=== PATIENT | female | born 1955 | race Caucasian/White ===

== ENCOUNTER 2016-09-11 17:56 | Inpatient (IN) | payer MEDICARE ==
[~2016-09-11] VITALS: Ht 165.1 cm; Wt 76.2 kg
[~2016-09-11 17:56] MED LIST: ASPI81TA2 PO; DIAZ10TA PO; DIME240C2 PO; DIPH25CA83 PO; LEVO500T15 PO; [UNRECOGNIZED DRUG - CODE] PO
[2016-09-11] MEDS ORDERED: IV NS 0.9% 1,000 ML BAG IV ONE ×2 (19:00→21:30)
[2016-09-11] MEDS ORDERED: IV SET PRIMARY 1 EA INFUS.SET MC ONE ×2 (19:15→21:28)
[2016-09-11] MEDS ORDERED: IV NS 0.9% 1,000 ML ONE ×2 (19:15→21:28)
[2016-09-11 19:21] LABS: BASOPHILS # (AUTO) 0.2 /CMM (0.0-0.2); BASOPHILS % (AUTO) 1.4 % (0.0-2.0); DIFF TOTAL % 100 %; HEMATOCRIT 37 % (33-45); HEMOGLOBIN 12.1 g/dL (11.5-14.8); LYMPHOCYTES % (AUTO) 7.1 % (20.0-44.0); MEAN CORPUSCULAR HEMOGLOBIN 30 PG (26.0-33.0); MEAN CORPUSCULAR HGB CONC 33 g/dl (31.0-36.0); MEAN CORPUSCULAR VOLUME 90 fL (82-100); MONOCYTES # (AUTO) 0.4 /CMM (0.1-1.30); NEUTROPHILS # (AUTO) 12.1 /CMM (1.8-8.9); NEUTROPHILS % (AUTO) 88.5 % (43.0-81.0); PLATELET COUNT (AUTO) 431 /CMM (150-450); RED BLOOD CELL COUNT(AUTO) 4.07 MIL/uL (4.0-5.2); WHITE BLOOD COUNT (AUTO) 13.7 K/uL (4.3-11.0)
[2016-09-11 19:31] LABS: ANION GAP 17 (5-14); CALCIUM, SERUM 9.6 mg/dL (8.5-10.1); CARBON DIOXIDE 26 mmol/L (21-32); CHLORIDE 98 mmol/L (98-107); CREATININE 2.2 mg/dL (0.6-1.3); GFR 23 mL/min (>60); GLUCOSE 154 mg/dL (74-106); POTASSIUM 3.9 mmol/L (3.5-5.1); SODIUM SERUM 137 mmol/L (136-145); UREA NITROGEN, BLOOD 32 mg/dL (7-18)
[2016-09-11 19:35] LABS: INR 1.06 (0.87-1.13); PROTHROMBIN TIME 11.1 SECS (9.5-12.7)
[2016-09-11 19:37] LABS: ALANINE AMINOTRANSFERASE 58 U/L (12-78); ALBUMIN 3.1 g/dL (3.4-5.0); ASPARTATE AMINOTRANSFERASE 55 U/L (15-37); BILIRUBIN,DIRECT 0.1 mg/dL (0.0-0.2); BILIRUBIN,TOTAL 0.4 mg/dL (0.2-1.0); INDIRECT BILIRUBIN 0.3 mg/dL (0.0-1.1); TOTAL PROTEIN, SERUM 8.7 g/dL (6.4-8.2)
[2016-09-11 19:39] LABS: TROPONIN I < 0.017 ng/mL (0.00-0.056)
[2016-09-11 19:50] LABS: KETONES,URINE Negative (NEGATIVE); LEUKOCYTE ESTERASE ,URINE Moderate (NEGATIVE)
[2016-09-11 19:54] LABS: ADD UA MICROSCOPIC YES; PH,URINE >9.0 (5.0-8.0)
[2016-09-11 20:19] LABS: LACTIC ACID 2.5 mmol/L (0.4-2.0)
[2016-09-11 20:20] LABS: *LACTIC ACID REFLEX FLAG YES
[2016-09-11 20:24] LABS: ADD URINE CULTURE YES
[2016-09-11 20:28] LABS: CANNABINOID, URINE NEGATIVE (NEGATIVE); PHENCYCLIDINE SCREEN,URINE NEGATIVE (NEGATIVE)
[2016-09-11] MEDS ORDERED: LEVOFLOXACIN 750 MG /D5W 150ML 150 ML IV ONE ×2 (20:55→21:00)
[2016-09-11] MEDS ORDERED: IV SET PRIMARY PUMP SET 1 EA INFUS.SET MC ONE (20:55)
[2016-09-11] MEDS ORDERED: SECONDARY IV SET 1 EA INFUS.SET MC ONE (21:28)
[2016-09-11] MEDS ORDERED: IV NS 0.9% 250 ML IV ONE (21:28)
[2016-09-11] MEDS ORDERED: ONDANSETRON HCL/PF 4 MG/2 ML VIAL ONE (21:41)
[2016-09-11] MEDS ORDERED: ONDANSETRON HCL/PF - ER 4 MG/2 ML VIAL IV ONE (22:00)
[2016-09-12] VITALS (28 sets, daily range): BP systolic 101–165; BP diastolic 45–95
[2016-09-12] MEDS ORDERED: IV NS 0.9% 1,000 ML IV PRN (01:19)
[2016-09-12] MEDS ORDERED: HYDROCODONE/APAP 5/325MG 1 EACH TABLET PO PRN (01:30)
[2016-09-12] MEDS ORDERED: MAG HYDROX/AL HYDROX/SIMETH 30 ML UDC PO PRN (01:30)
[2016-09-12] MEDS ORDERED: ZOLPIDEM TARTRATE 5 MG TABLET PO PRN (01:30)
[2016-09-12] MEDS ORDERED: ACETAMINOPHEN 325 MG TABLET PO PRN (01:30)
[2016-09-12] MEDS ORDERED: LORAZEPAM INJ 2 MG/ML VIAL IV PRN ×2 (01:30→07:30)
[2016-09-12] MEDS ORDERED: LEVOFLOXACIN 500 MG /D5W 100ML 500 MG in PREMIX 1 EA IV SCH (01:30)
[2016-09-12] MEDS ORDERED: ONDANSETRON HCL/PF 4 MG/2 ML VIAL IVP PRN (01:30)
[2016-09-12] MEDS ORDERED: Z GUARD REMEDY 2 OZ OINT TP PRN (01:30)
[2016-09-12] MEDS ORDERED: ENOXAPARIN SODIUM 40 MG/0.4 ML DISP.SYRIN SQ SCH (01:30)
[2016-09-12] MEDS ORDERED: MAGNESIUM HYDROXIDE 30 ML UDC PO PRN (01:30)
[2016-09-12] MEDS ORDERED: IV SET PRIMARY PUMP SET 1 EA INFUS.SET MC ONE ×5 (01:32→21:46)
[2016-09-12] MEDS ORDERED: SECONDARY IV SET 1 EA INFUS.SET MC ONE (01:32)
[2016-09-12] MEDS ORDERED: IV NS 0.9% 1,000 ML ONE (01:32)
[2016-09-12] MEDS ORDERED: MORPHINE SULFATE INJ 2 MG/ML DISP.SYRIN ONE (01:48)
[2016-09-12] MEDS: MORPHINE SULFATE INJ 2 MG/ML DISP.SYRIN IV PRN ×2 (01:52→17:43)
[2016-09-12] MEDS ORDERED: LEVOFLOXACIN 500 MG /D5W 100ML 100 ML IV ONE (02:20)
[2016-09-12] MEDS ORDERED: ONDANSETRON HCL/PF 4 MG/2 ML VIAL ONE (03:53)
[2016-09-12 05:22] LABS: ABG BASE EXCESS 0.5 mmol/L; ABG HCO3 24.9 mmol/L; ABG PCO2 39.6 mmHg (35.0-45.0); ABG PH 7.417 (7.350-7.450); ABG PO2 59.8 mmHg (75.0-100.0); ABG TOTAL HEMOGLOBIN 12.1 G/dL (12.0-16.0); ALLEN TEST Pass; O2Hb 88.5 % (94.0-97.0)
[2016-09-12] MEDS ORDERED: NITROGLYCERIN 0.4 MG/TAB BOTTLE ONE (05:44)
[2016-09-12] MEDS ORDERED: FUROSEMIDE 40 MG/4 ML VIAL ONE (05:48)
[2016-09-12] MEDS: NITROGLYCERIN 4.9 GM SPRAY SL PRN ×3 (05:52→06:00)
[2016-09-12] MEDS ORDERED: FUROSEMIDE 40 MG/4 ML VIAL IV ONE (06:00)
[2016-09-12 06:25] LABS: BASOPHILS % (AUTO) 0.1 % (0.0-2.0); DIFF TOTAL % 100 %; HEMATOCRIT 36 % (33-45); HEMOGLOBIN 12.1 g/dL (11.5-14.8); LYMPHOCYTES # (AUTO) 0.6 /CMM (0.8-4.8); MEAN CORPUSCULAR HEMOGLOBIN 30 PG (26.0-33.0); MEAN CORPUSCULAR HGB CONC 33 g/dl (31.0-36.0); MEAN CORPUSCULAR VOLUME 90 fL (82-100); MONOCYTES # (AUTO) 0.1 /CMM (0.1-1.30); MONOCYTES % (AUTO) 1.2 % (2.0-12.0); NEUTROPHILS # (AUTO) 9.2 /CMM (1.8-8.9); NEUTROPHILS % (AUTO) 92.7 % (43.0-81.0); PLATELET COUNT (AUTO) 401 /CMM (150-450); RED BLOOD CELL COUNT(AUTO) 4.07 MIL/uL (4.0-5.2); WHITE BLOOD COUNT (AUTO) 9.9 K/uL (4.3-11.0)
[2016-09-12 06:30] LABS: ANION GAP 20 (5-14); CALCIUM, SERUM 9.1 mg/dL (8.5-10.1); CARBON DIOXIDE 25 mmol/L (21-32); CHLORIDE 103 mmol/L (98-107); CREATININE 2.1 mg/dL (0.6-1.3); GFR 24 mL/min (>60); GLUCOSE 189 mg/dL (74-106); POTASSIUM 3.6 mmol/L (3.5-5.1); SODIUM SERUM 144 mmol/L (136-145); UREA NITROGEN, BLOOD 33 mg/dL (7-18)
[2016-09-12 06:38] LABS: TROPONIN I < 0.017 ng/mL (0.00-0.056)
[2016-09-12 07:00] LABS: ABG BASE EXCESS -0.6 mmol/L; ABG HCO3 21.7 mmol/L; ABG PCO2 28.6 mmHg (35.0-45.0); ABG PH 7.497 (7.350-7.450); ABG PO2 111.3 mmHg (75.0-100.0); ABG TOTAL HEMOGLOBIN 12.3 G/dL (12.0-16.0); ALLEN TEST Pass; O2Hb 96.5 % (94.0-97.0)
[2016-09-12] MEDS ORDERED: MIDAZOLAM HCL 100 MG in IV NS 0.9% 80 ML IV PRN (07:30)
[2016-09-12] MEDS ORDERED: PANTOPRAZOLE 40 MG TABLET.DR PO SCH (07:30)
[2016-09-12] MEDS ORDERED: FENTANYL CITRATE IV 1,250 MCG in IV NS 0.9% 225 ML IV PRN (07:30)
[2016-09-12] MEDS ORDERED: PROPOFOL 100 ML IV PRN (08:00)
[2016-09-12] MEDS ORDERED: SUCCINYLCHOLINE CHLORIDE 20 MG/ML VIAL IV ONE (08:00)
[2016-09-12] MEDS ORDERED: ETOMIDATE 2 MG/ML VIAL IV ONE (08:00)
[2016-09-12] MEDS ORDERED: NITROGLYCERIN 4.9 GM SPRAY SL PRN (08:11)
[2016-09-12 08:37] LABS: ABG BASE EXCESS 0.1 mmol/L; ABG HCO3 23.3 mmol/L; ABG PCO2 33.1 mmHg (35.0-45.0); ABG PH 7.465 (7.350-7.450); ABG PO2 476.3 mmHg (75.0-100.0); ABG TOTAL HEMOGLOBIN 11.7 G/dL (12.0-16.0); ALLEN TEST Pass; AaDO2 203.6 mmHg
[2016-09-12] MEDS ORDERED: DIAZEPAM 10 MG TABLET PO SCH (09:00)
[2016-09-12] MEDS ORDERED: diphenhydrAMINE HCL 25 MG CAPSULE PO PRN (09:00)
[2016-09-12] MEDS ORDERED: ASPIRIN 81 MG TAB.CHEW PO SCH (09:00)
[2016-09-12] MEDS ORDERED: oxyCODONE/APAP (5/325 MG) 1 UDTAB TABLET PO PRN ×2 (09:00)
[2016-09-12] MEDS ORDERED: SET PCA INFUSE SET 1 EA INFUS.SET MC ONE (09:02)
[2016-09-12] MEDS ORDERED: GABA-534 PO ×2 (09:06)
[2016-09-12] MEDS ORDERED: NORT25CA PO (09:06)
[2016-09-12] MEDS ORDERED: MORP30TA PO (09:06)
[2016-09-12] MEDS ORDERED: GLAT40SY SQ (09:06)
[2016-09-12] MEDS ORDERED: IPRA3AMP IH ×2 (09:06)
[2016-09-12] MEDS ORDERED: LEVO125T8 PO (09:06)
[2016-09-12] MEDS ORDERED: VITA80008 PO (09:06)
[2016-09-12] MEDS ORDERED: CHOL100044 PO (09:06)
[2016-09-12] MEDS: IV NS 0.9% 1,000 ML IV PRN ×2 (10:26→19:18)
[2016-09-12] MEDS: PANTOPRAZOLE 80 MG in IV NS 0.9% 500 ML IV PRN ×2 (10:30→18:30)
[2016-09-12] MEDS: OCTREOTIDE 1,250 MCG in IV NS 0.9% 247.5 ML IV PRN (10:31)
[2016-09-12] MEDS: LORAZEPAM INJ 2 MG/ML VIAL IV PRN ×4 (12:41→22:35)
[2016-09-12 13:08] LABS: AMYLASE 84 U/L (25-115)
[2016-09-12] MEDS ORDERED: ACETAMINOPHEN 650 MG/SUPP.RECT RC PRN (18:00)
[2016-09-12] MEDS ORDERED: OCTREOTIDE 500 MCG/ML VIAL ONE (21:12)
[2016-09-12] MEDS ORDERED: IV NS 0.9% 100 ML IV ONE ×2 (21:26→21:34)
[2016-09-12] MEDS ORDERED: IV NS 0.9% 250 ML IV ONE (21:46)
[2016-09-12] MEDS: MIDAZOLAM HCL 100 MG in IV NS 0.9% 80 ML IV PRN (22:37)
[2016-09-13] VITALS (39 sets, daily range): BP systolic 120–179; BP diastolic 45–88
[2016-09-13] MEDS: MORPHINE SULFATE INJ 2 MG/ML DISP.SYRIN IV PRN ×3 (00:43→15:10)
[2016-09-13] MEDS: LORAZEPAM INJ 2 MG/ML VIAL IV PRN ×9 (00:58→22:14)
[2016-09-13] MEDS ORDERED: hydrALAZINE HCL IV 20 MG VIAL ONE (02:31)
[2016-09-13] MEDS ORDERED: hydrALAZINE HCL IV 20 MG VIAL IV ONE (02:36)
[2016-09-13] MEDS ORDERED: hydrALAZINE HCL IV 20 MG VIAL IV PRN (02:36)
[2016-09-13] MEDS: PANTOPRAZOLE 80 MG in IV NS 0.9% 500 ML IV PRN ×3 (03:45→23:16)
[2016-09-13] MEDS: IV NS 0.9% 1,000 ML IV PRN ×3 (03:45→22:49)
[2016-09-13] MEDS: OCTREOTIDE 1,250 MCG in IV NS 0.9% 247.5 ML IV PRN ×2 (03:47→13:21)
[2016-09-13 05:11] LABS: BASOPHILS % (AUTO) 0.1 % (0.0-2.0); DIFF TOTAL % 100 %; EOSINOPHILS # (AUTO) 0.2 /CMM (0.0-0.7); EOSINOPHILS % (AUTO) 2.2 % (0.0-6.0); HEMATOCRIT 28 % (33-45); HEMOGLOBIN 9.2 g/dL (11.5-14.8); LYMPHOCYTES # (AUTO) 1.5 /CMM (0.8-4.8); LYMPHOCYTES % (AUTO) 20.3 % (20.0-44.0); MEAN CORPUSCULAR HEMOGLOBIN 30 PG (26.0-33.0); MEAN CORPUSCULAR HGB CONC 34 g/dl (31.0-36.0); MEAN CORPUSCULAR VOLUME 90 fL (82-100); MONOCYTES # (AUTO) 0.4 /CMM (0.1-1.30); NEUTROPHILS # (AUTO) 5.2 /CMM (1.8-8.9); NEUTROPHILS % (AUTO) 71.4 % (43.0-81.0); PLATELET COUNT (AUTO) 275 /CMM (150-450); RED BLOOD CELL COUNT(AUTO) 3.06 MIL/uL (4.0-5.2); WHITE BLOOD COUNT (AUTO) 7.3 K/uL (4.3-11.0)
[2016-09-13 05:21] LABS: CALCIUM, SERUM 7.9 mg/dL (8.5-10.1); CREATININE 2.3 mg/dL (0.6-1.3); POTASSIUM 3.5 mmol/L (3.5-5.1)
[2016-09-13] MEDS ORDERED: LABETALOL HCL IV 100MG VIAL ONE (05:42)
[2016-09-13] MEDS ORDERED: LABETALOL 20 MG/4 ML VIAL IV ONE (06:00)
[2016-09-13] MEDS: MIDAZOLAM HCL 100 MG in IV NS 0.9% 80 ML IV PRN ×2 (07:19→16:59)
[2016-09-13] MEDS: LEVOTHYROXINE SODIUM 125 MCG TABLET PO SCH (09:30)
[2016-09-13 09:42] LABS: ABG BASE EXCESS -4.2 mmol/L; ABG HCO3 19.6 mmol/L; ABG PCO2 30.7 mmHg (35.0-45.0); ABG PH 7.422 (7.350-7.450); ABG PO2 113.3 mmHg (75.0-100.0); ABG TOTAL HEMOGLOBIN 8.9 G/dL (12.0-16.0); ALLEN TEST Pass; AaDO2 100.6 mmHg; O2Hb 96.3 % (94.0-97.0)
[2016-09-13] MEDS: HYDROCODONE/APAP 5/325MG 1 EACH TABLET PO PRN ×2 (10:22→18:13)
[2016-09-13] MEDS ORDERED: Magnesium 1GM/D5W 100ML PREMIX 200 ML IV ONE (10:35)
[2016-09-13] MEDS ORDERED: SECONDARY IV SET 1 EA INFUS.SET MC ONE (10:36)
[2016-09-13] MEDS ORDERED: IV NS 0.9% 250 ML IV ONE (10:36)
[2016-09-13] MEDS ORDERED: IV SET PRIMARY PUMP SET 1 EA INFUS.SET MC ONE (10:36)
[2016-09-13] MEDS: Magnesium 1GM/D5W 100ML PREMIX 100 ML IV SCH ×2 (11:10→12:26)
[2016-09-13] MEDS: LEVOFLOXACIN 250 MG /D5W 50 ML 250 MG in PREMIX 1 EA IV SCH (15:07)
[2016-09-13] MEDS: hydrALAZINE HCL IV 20 MG VIAL IV PRN ×2 (15:10→22:15)
[2016-09-13] MEDS: GABAPENTIN 300 MG CAPSULE PO SCH (17:01)
[2016-09-13] MEDS ORDERED: METOPROLOL TARTRATE INJ 5 MG/5 ML AMPUL IVP ONE (19:30)
[2016-09-13] MEDS: MUPIROCIN OINT 2% 22 GM TUBE SCH (22:13)
[2016-09-13] MEDS: PIPERACILLIN /TAZOBACTAM 2.25 G in IV D5W 50 ML IV SCH (22:13)
[2016-09-13] MEDS: NORTRIPTYLINE HCL 25 MG CAPSULE PO SCH (22:14)
[2016-09-14] VITALS (35 sets, daily range): BP systolic 125–178; BP diastolic 49–103
[2016-09-14] MEDS: MORPHINE SULFATE INJ 2 MG/ML DISP.SYRIN IV PRN ×3 (02:23→19:55)
[2016-09-14] MEDS ORDERED: METOPROLOL TARTRATE INJ 5 MG/5 ML AMPUL ONE (02:25)
[2016-09-14 05:16] LABS: BASOPHILS % (AUTO) 0.4 % (0.0-2.0); DIFF TOTAL % 100 %; EOSINOPHILS # (AUTO) 0.2 /CMM (0.0-0.7); EOSINOPHILS % (AUTO) 1.7 % (0.0-6.0); HEMATOCRIT 25 % (33-45); HEMOGLOBIN 8.3 g/dL (11.5-14.8); LYMPHOCYTES # (AUTO) 1.2 /CMM (0.8-4.8); LYMPHOCYTES % (AUTO) 11.7 % (20.0-44.0); MEAN CORPUSCULAR HEMOGLOBIN 30 PG (26.0-33.0); MEAN CORPUSCULAR HGB CONC 33 g/dl (31.0-36.0); MEAN CORPUSCULAR VOLUME 89 fL (82-100); MONOCYTES # (AUTO) 0.6 /CMM (0.1-1.30); MONOCYTES % (AUTO) 6.4 % (2.0-12.0); NEUTROPHILS # (AUTO) 7.9 /CMM (1.8-8.9); NEUTROPHILS % (AUTO) 79.8 % (43.0-81.0); PLATELET COUNT (AUTO) 284 /CMM (150-450); RED BLOOD CELL COUNT(AUTO) 2.77 MIL/uL (4.0-5.2); WHITE BLOOD COUNT (AUTO) 9.9 K/uL (4.3-11.0)
[2016-09-14] MEDS: PIPERACILLIN /TAZOBACTAM 2.25 G in IV D5W 50 ML IV SCH (05:26)
[2016-09-14 05:36] LABS: ALBUMIN 2.2 g/dL (3.4-5.0); BILIRUBIN,DIRECT 0.1 mg/dL (0.0-0.2); BILIRUBIN,TOTAL 0.3 mg/dL (0.2-1.0); CALCIUM, SERUM 8.1 mg/dL (8.5-10.1); CREATININE 1.6 mg/dL (0.6-1.3); INDIRECT BILIRUBIN 0.2 mg/dL (0.0-1.1); PHOSPHORUS 2.5 mg/dL (2.5-4.9); POTASSIUM 3.1 mmol/L (3.5-5.1)
[2016-09-14] MEDS: MIDAZOLAM HCL 100 MG in IV NS 0.9% 80 ML IV PRN (08:18)
[2016-09-14] MEDS: IV NS 0.9% 1,000 ML IV PRN (08:20)
[2016-09-14] MEDS: hydrALAZINE HCL IV 20 MG VIAL IV PRN (08:20)
[2016-09-14] MEDS: LEVOTHYROXINE SODIUM 125 MCG TABLET PO SCH (08:20)
[2016-09-14] MEDS: MUPIROCIN OINT 2% 22 GM TUBE SCH ×2 (08:20→20:22)
[2016-09-14] MEDS: CHOLECALCIFEROL 1,000 UNIT TABLET (VIT D3) PO SCH (08:21)
[2016-09-14] MEDS: GABAPENTIN 300 MG CAPSULE PO SCH ×2 (08:21→17:14)
[2016-09-14] MEDS ORDERED: Potassium Chloride 40 MEQ in IV NS 0.9% 1,000 ML IV PRN (09:19)
[2016-09-14] MEDS: PANTOPRAZOLE 80 MG in IV NS 0.9% 500 ML IV PRN (09:36)
[2016-09-14] MEDS ORDERED: IV SET PRIMARY PUMP SET 1 EA INFUS.SET MC ONE (10:55)
[2016-09-14 11:23] LABS: ABG BASE EXCESS -3.4 mmol/L; ABG HCO3 20.1 mmol/L; ABG PH 7.443 (7.350-7.450); ABG PO2 96.4 mmHg (75.0-100.0); ABG TOTAL HEMOGLOBIN 8.7 G/dL (12.0-16.0); ALLEN TEST Pass; AaDO2 82.3 mmHg; O2Hb 94.9 % (94.0-97.0)
[2016-09-14] MEDS ORDERED: PIPERACILLIN /TAZOBACTAM 2.25 G in IV D5W 50 ML IV SCH (12:00)
[2016-09-14 13:44] LABS: THYROID STIMULATING HORMONE 0.013 uIU/mL (0.358-3.74)
[2016-09-14] MEDS: PIPERACILLIN /TAZOBACTAM 3.375 G in IV D5W 50 ML IV SCH ×3 (13:55→23:54)
[2016-09-14] MEDS ORDERED: SECONDARY IV SET 1 EA INFUS.SET MC ONE (15:04)
[2016-09-14] MEDS: POTASSIUM CL. PREMIX PERIPHER. 50 ML IV SCH ×4 (15:09→18:35)
[2016-09-14] MEDS: LEVOFLOXACIN 250 MG /D5W 50 ML 250 MG in PREMIX 1 EA IV SCH (15:12)
[2016-09-14] MEDS ORDERED: BISACODYL SUPP (10 MG) 10 MG/SUPP.RECT SUPP.RECT RC PRN (15:30)
[2016-09-14] MEDS: PANTOPRAZOLE 40 MG VIAL IV SCH (20:21)
[2016-09-14] MEDS: NORTRIPTYLINE HCL 25 MG CAPSULE PO SCH (21:15)
[2016-09-15] VITALS (39 sets, daily range): BP systolic 113–164; BP diastolic 47–93
[2016-09-15] MEDS: PIPERACILLIN /TAZOBACTAM 3.375 G in IV D5W 50 ML IV SCH ×5 (00:08→23:07)
[2016-09-15] MEDS ORDERED: IV NS 0.9% 250 ML IV ONE (03:03)
[2016-09-15] MEDS: LORAZEPAM INJ 2 MG/ML VIAL IV PRN ×4 (03:51→23:04)
[2016-09-15 04:57] LABS: BASOPHILS % (AUTO) 0.4 % (0.0-2.0); DIFF TOTAL % 100 %; EOSINOPHILS # (AUTO) 0.2 /CMM (0.0-0.7); EOSINOPHILS % (AUTO) 1.5 % (0.0-6.0); HEMATOCRIT 24 % (33-45); HEMOGLOBIN 8.3 g/dL (11.5-14.8); LYMPHOCYTES # (AUTO) 1.8 /CMM (0.8-4.8); LYMPHOCYTES % (AUTO) 14.7 % (20.0-44.0); MEAN CORPUSCULAR HEMOGLOBIN 30 PG (26.0-33.0); MEAN CORPUSCULAR HGB CONC 34 g/dl (31.0-36.0); MEAN CORPUSCULAR VOLUME 90 fL (82-100); MONOCYTES # (AUTO) 0.6 /CMM (0.1-1.30); MONOCYTES % (AUTO) 5.3 % (2.0-12.0); NEUTROPHILS # (AUTO) 9.6 /CMM (1.8-8.9); NEUTROPHILS % (AUTO) 78.1 % (43.0-81.0); PLATELET COUNT (AUTO) 302 /CMM (150-450); RED BLOOD CELL COUNT(AUTO) 2.72 MIL/uL (4.0-5.2); WHITE BLOOD COUNT (AUTO) 12.3 K/uL (4.3-11.0)
[2016-09-15 05:13] LABS: CALCIUM, SERUM 8.6 mg/dL (8.5-10.1); CREATININE 1.7 mg/dL (0.6-1.3); PHOSPHORUS 2.8 mg/dL (2.5-4.9); POTASSIUM 3.4 mmol/L (3.5-5.1)
[2016-09-15 07:38] LABS: ABG BASE EXCESS -5.6 mmol/L; ABG HCO3 17.9 mmol/L; ABG PCO2 27.7 mmHg (35.0-45.0); ABG PH 7.429 (7.350-7.450); ABG PO2 104.7 mmHg (75.0-100.0); ABG TOTAL HEMOGLOBIN 8.2 G/dL (12.0-16.0); ALLEN TEST Pass; AaDO2 76.7 mmHg; O2Hb 95.3 % (94.0-97.0)
[2016-09-15] MEDS: POTASSIUM CL. PREMIX PERIPHER. 50 ML IV SCH ×4 (08:19→11:23)
[2016-09-15] MEDS: LEVOTHYROXINE SODIUM 125 MCG TABLET PO SCH (08:20)
[2016-09-15] MEDS: GABAPENTIN 300 MG CAPSULE PO SCH ×2 (08:20→17:05)
[2016-09-15] MEDS: CHOLECALCIFEROL 1,000 UNIT TABLET (VIT D3) PO SCH (08:20)
[2016-09-15] MEDS: PANTOPRAZOLE 40 MG VIAL IV SCH ×2 (08:20→21:18)
[2016-09-15] MEDS: hydrALAZINE HCL IV 20 MG VIAL IV PRN (08:20)
[2016-09-15] MEDS: MUPIROCIN OINT 2% 22 GM TUBE SCH ×2 (08:29→21:18)
[2016-09-15] MEDS ORDERED: SECONDARY IV SET 1 EA INFUS.SET MC ONE (14:14)
[2016-09-15] MEDS: LEVOFLOXACIN 250 MG /D5W 50 ML 250 MG in PREMIX 1 EA IV SCH (14:17)
[2016-09-15] MEDS: MORPHINE SULFATE INJ 2 MG/ML DISP.SYRIN IV PRN (17:05)
[2016-09-15] MEDS: NORTRIPTYLINE HCL 25 MG CAPSULE PO SCH (21:18)
[2016-09-16] VITALS (39 sets, daily range): BP systolic 143–181; BP diastolic 45–93
[2016-09-16] MEDS: MORPHINE SULFATE INJ 2 MG/ML DISP.SYRIN IV PRN ×3 (01:28→22:00)
[2016-09-16] MEDS: LORAZEPAM INJ 2 MG/ML VIAL IV PRN (03:08)
[2016-09-16 04:49] LABS: BASOPHILS % (AUTO) 0.2 % (0.0-2.0); DIFF TOTAL % 100 %; EOSINOPHILS # (AUTO) 0.1 /CMM (0.0-0.7); EOSINOPHILS % (AUTO) 0.8 % (0.0-6.0); HEMATOCRIT 24 % (33-45); HEMOGLOBIN 8.2 g/dL (11.5-14.8); LYMPHOCYTES % (AUTO) 15.6 % (20.0-44.0); MEAN CORPUSCULAR HEMOGLOBIN 30 PG (26.0-33.0); MEAN CORPUSCULAR HGB CONC 34 g/dl (31.0-36.0); MEAN CORPUSCULAR VOLUME 88 fL (82-100); MONOCYTES # (AUTO) 0.8 /CMM (0.1-1.30); MONOCYTES % (AUTO) 6.6 % (2.0-12.0); NEUTROPHILS # (AUTO) 9.8 /CMM (1.8-8.9); NEUTROPHILS % (AUTO) 76.8 % (43.0-81.0); PLATELET COUNT (AUTO) 322 /CMM (150-450); RED BLOOD CELL COUNT(AUTO) 2.75 MIL/uL (4.0-5.2); WHITE BLOOD COUNT (AUTO) 12.8 K/uL (4.3-11.0)
[2016-09-16] MEDS: PIPERACILLIN /TAZOBACTAM 3.375 G in IV D5W 50 ML IV SCH ×3 (05:09→17:01)
[2016-09-16 05:22] LABS: ALBUMIN 2.4 g/dL (3.4-5.0); BILIRUBIN,TOTAL 0.5 mg/dL (0.2-1.0); CALCIUM, SERUM 8.6 mg/dL (8.5-10.1); PHOSPHORUS 2.4 mg/dL (2.5-4.9); POTASSIUM 3.5 mmol/L (3.5-5.1); TOTAL PROTEIN, SERUM 7.5 g/dL (6.4-8.2)
[2016-09-16] MEDS: LEVOTHYROXINE SODIUM 125 MCG TABLET PO SCH (08:09)
[2016-09-16] MEDS: PANTOPRAZOLE 40 MG VIAL IV SCH ×2 (08:09→21:31)
[2016-09-16] MEDS: CHOLECALCIFEROL 1,000 UNIT TABLET (VIT D3) PO SCH (08:09)
[2016-09-16] MEDS: GABAPENTIN 300 MG CAPSULE PO SCH ×2 (08:09→17:01)
[2016-09-16] MEDS: MUPIROCIN OINT 2% 22 GM TUBE SCH ×2 (08:10→21:32)
[2016-09-16] MEDS: hydrALAZINE HCL IV 20 MG VIAL IV PRN (09:15)
[2016-09-16] MEDS: LEVOFLOXACIN 250 MG /D5W 50 ML 250 MG in PREMIX 1 EA IV SCH (14:10)
[2016-09-16] MEDS ORDERED: SECONDARY IV SET 1 EA INFUS.SET MC ONE (15:14)
[2016-09-16] MEDS ORDERED: POTASSIUM PHOSPHATE MM 15 MMOL in IV D5W 250 ML IV SCH (15:30)
[2016-09-16] MEDS: NORTRIPTYLINE HCL 25 MG CAPSULE PO SCH (21:31)
[2016-09-17] VITALS (39 sets, daily range): BP systolic 72–185; BP diastolic 55–96
[2016-09-17 05:18] LABS: ALBUMIN 2.4 g/dL (3.4-5.0); BILIRUBIN,TOTAL 0.5 mg/dL (0.2-1.0); CALCIUM, SERUM 8.4 mg/dL (8.5-10.1); CREATININE 1.9 mg/dL (0.6-1.3); PHOSPHORUS 3.3 mg/dL (2.5-4.9); POTASSIUM 3.8 mmol/L (3.5-5.1); TOTAL PROTEIN, SERUM 7.4 g/dL (6.4-8.2)
[2016-09-17 05:23] LABS: BASOPHILS # (AUTO) 0.1 /CMM (0.0-0.2); BASOPHILS % (AUTO) 0.4 % (0.0-2.0); DIFF TOTAL % 100 %; EOSINOPHILS # (AUTO) 0.1 /CMM (0.0-0.7); EOSINOPHILS % (AUTO) 1.1 % (0.0-6.0); HEMATOCRIT 24 % (33-45); LYMPHOCYTES % (AUTO) 15.5 % (20.0-44.0); MEAN CORPUSCULAR HEMOGLOBIN 30 PG (26.0-33.0); MEAN CORPUSCULAR HGB CONC 34 g/dl (31.0-36.0); MEAN CORPUSCULAR VOLUME 88 fL (82-100); MONOCYTES # (AUTO) 0.8 /CMM (0.1-1.30); NEUTROPHILS # (AUTO) 9.9 /CMM (1.8-8.9); PLATELET COUNT (AUTO) 322 /CMM (150-450); RED BLOOD CELL COUNT(AUTO) 2.72 MIL/uL (4.0-5.2); WHITE BLOOD COUNT (AUTO) 12.8 K/uL (4.3-11.0)
[2016-09-17] MEDS: LEVOTHYROXINE SODIUM 125 MCG TABLET PO SCH (08:14)
[2016-09-17] MEDS: GABAPENTIN 300 MG CAPSULE PO SCH (08:14)
[2016-09-17] MEDS: CHOLECALCIFEROL 1,000 UNIT TABLET (VIT D3) PO SCH (08:14)
[2016-09-17] MEDS: PANTOPRAZOLE 40 MG VIAL IV SCH ×2 (08:15→20:39)
[2016-09-17] MEDS: MUPIROCIN OINT 2% 22 GM TUBE SCH ×2 (08:16→20:40)
[2016-09-17 10:24] LABS: ABG BASE EXCESS -3.8 mmol/L; ABG HCO3 19.4 mmol/L; ABG PCO2 28.8 mmHg (35.0-45.0); ABG PH 7.447 (7.350-7.450); ABG PO2 110.1 mmHg (75.0-100.0); ABG TOTAL HEMOGLOBIN 9.6 G/dL (12.0-16.0); ALLEN TEST Pass; O2Hb 96.3 % (94.0-97.0)
[2016-09-17] MEDS ORDERED: IV NS 0.9% 250 ML IV ONE (14:14)
[2016-09-17] MEDS: LORAZEPAM INJ 2 MG/ML VIAL IV PRN ×2 (14:29→20:40)
[2016-09-17] MEDS: MORPHINE SULFATE INJ 2 MG/ML DISP.SYRIN IV PRN (14:29)
[2016-09-17] MEDS: LEVOFLOXACIN 250 MG /D5W 50 ML 250 MG in PREMIX 1 EA IV SCH (14:32)
[2016-09-17] MEDS ORDERED: GABAPENTIN 100 MG CAPSULE PO SCH (18:00)
[2016-09-17] MEDS: NORTRIPTYLINE HCL 25 MG CAPSULE PO SCH (22:09)
[2016-09-18] VITALS (31 sets, daily range): BP systolic 110–188; BP diastolic 44–110
[2016-09-18 05:18] LABS: BASOPHILS % (AUTO) 0.2 % (0.0-2.0); DIFF TOTAL % 100 %; EOSINOPHILS # (AUTO) 0.3 /CMM (0.0-0.7); EOSINOPHILS % (AUTO) 1.8 % (0.0-6.0); HEMATOCRIT 27 % (33-45); LYMPHOCYTES # (AUTO) 2.8 /CMM (0.8-4.8); LYMPHOCYTES % (AUTO) 18.4 % (20.0-44.0); MEAN CORPUSCULAR HEMOGLOBIN 30 PG (26.0-33.0); MEAN CORPUSCULAR HGB CONC 34 g/dl (31.0-36.0); MEAN CORPUSCULAR VOLUME 89 fL (82-100); MONOCYTES # (AUTO) 1.1 /CMM (0.1-1.30); NEUTROPHILS % (AUTO) 72.6 % (43.0-81.0); PLATELET COUNT (AUTO) 373 /CMM (150-450); WHITE BLOOD COUNT (AUTO) 15.1 K/uL (4.3-11.0)
[2016-09-18 05:32] LABS: CREATININE 1.6 mg/dL (0.6-1.3); PHOSPHORUS 3.9 mg/dL (2.5-4.9); POTASSIUM 3.8 mmol/L (3.5-5.1)
[2016-09-18] MEDS: LEVOTHYROXINE SODIUM 125 MCG TABLET PO SCH (08:06)
[2016-09-18] MEDS: PANTOPRAZOLE 40 MG VIAL IV SCH ×2 (08:07→21:33)
[2016-09-18] MEDS: MUPIROCIN OINT 2% 22 GM TUBE SCH ×2 (08:07→21:34)
[2016-09-18] MEDS: CHOLECALCIFEROL 1,000 UNIT TABLET (VIT D3) PO SCH (08:07)
[2016-09-18] MEDS: GABAPENTIN 300 MG CAPSULE PO SCH ×3 (08:07→17:25)
[2016-09-18] MEDS ORDERED: DC PROPOFOL WHEN EXTUBATED XX PRN (12:00)
[2016-09-18] MEDS: hydrALAZINE HCL IV 20 MG VIAL IV PRN (12:15)
[2016-09-18] MEDS ORDERED: IV SET PRIMARY PUMP SET 1 EA INFUS.SET MC ONE (14:33)
[2016-09-18] MEDS ORDERED: IV NS 0.9% 250 ML IV ONE (14:33)
[2016-09-18] MEDS: LEVOFLOXACIN 250 MG /D5W 50 ML 250 MG in PREMIX 1 EA IV SCH (14:55)
[2016-09-18 15:17] LABS: ABG BASE EXCESS -5.4 mmol/L; ABG PCO2 28.1 mmHg (35.0-45.0); ABG PH 7.425 (7.350-7.450); ABG PO2 100.3 mmHg (75.0-100.0); ALLEN TEST Pass; AaDO2 72.1 mmHg; O2Hb 95.7 % (94.0-97.0)
[2016-09-18] MEDS ORDERED: FEE PK DOSING 1 MIN EA MC ONE (16:29)
[2016-09-18] MEDS: VANCOMYCIN 1 GM in IV D5W 250 ML IV SCH (17:10)
[2016-09-18] MEDS: NORTRIPTYLINE HCL 25 MG CAPSULE PO SCH (21:36)
[2016-09-19] VITALS (28 sets, daily range): BP systolic 84–163; BP diastolic 48–104
[2016-09-19 04:51] LABS: BASOPHILS % (AUTO) 0.3 % (0.0-2.0); DIFF TOTAL % 100 %; EOSINOPHILS # (AUTO) 0.2 /CMM (0.0-0.7); EOSINOPHILS % (AUTO) 1.3 % (0.0-6.0); HEMATOCRIT 30 % (33-45); LYMPHOCYTES # (AUTO) 2.7 /CMM (0.8-4.8); LYMPHOCYTES % (AUTO) 15.8 % (20.0-44.0); MEAN CORPUSCULAR HEMOGLOBIN 30 PG (26.0-33.0); MEAN CORPUSCULAR HGB CONC 34 g/dl (31.0-36.0); MEAN CORPUSCULAR VOLUME 89 fL (82-100); MONOCYTES # (AUTO) 0.9 /CMM (0.1-1.30); MONOCYTES % (AUTO) 5.2 % (2.0-12.0); NEUTROPHILS % (AUTO) 77.4 % (43.0-81.0); PLATELET COUNT (AUTO) 431 /CMM (150-450); RED BLOOD CELL COUNT(AUTO) 3.31 MIL/uL (4.0-5.2); WHITE BLOOD COUNT (AUTO) 16.8 K/uL (4.3-11.0)
[2016-09-19] MEDS ORDERED: IV NS 0.9% 250 ML IV ONE (05:06)
[2016-09-19 05:11] LABS: CALCIUM, SERUM 8.7 mg/dL (8.5-10.1); CREATININE 1.5 mg/dL (0.6-1.3); PHOSPHORUS 3.1 mg/dL (2.5-4.9); POTASSIUM 3.4 mmol/L (3.5-5.1)
[2016-09-19 05:30] LABS: EOSINOPHILS % (MANUAL) 5 % (0-4); LYMPHOCYTES % (MANUAL) 22 % (16-48); MYELOCYTES % 1 % (0-0); PLATELET ESTIMATE ADEQUATE
[2016-09-19 05:31] LABS: ANISOCYTOSIS 1+
[2016-09-19] MEDS: PANTOPRAZOLE 40 MG VIAL IV SCH ×2 (08:16→20:38)
[2016-09-19] MEDS: CHOLECALCIFEROL 1,000 UNIT TABLET (VIT D3) PO SCH (08:17)
[2016-09-19] MEDS: LEVOTHYROXINE SODIUM 125 MCG TABLET PO SCH (08:17)
[2016-09-19] MEDS: GABAPENTIN 300 MG CAPSULE PO SCH ×2 (08:17→17:41)
[2016-09-19] MEDS: MUPIROCIN OINT 2% 22 GM TUBE SCH ×2 (08:18→22:05)
[2016-09-19] MEDS ORDERED: POTASSIUM CHLORIDE 10 MEQ TABLET.SA PO SCH (12:00)
[2016-09-19] MEDS: LEVOFLOXACIN 250 MG /D5W 50 ML 250 MG in PREMIX 1 EA IV SCH (15:01)
[2016-09-19] MEDS ORDERED: SECONDARY IV SET 1 EA INFUS.SET MC ONE (15:01)
[2016-09-19] MEDS: VANCOMYCIN 1 GM in IV D5W 250 ML IV SCH (17:41)
[2016-09-19] MEDS: NORTRIPTYLINE HCL 25 MG CAPSULE PO SCH (22:04)
[2016-09-20] VITALS (14 sets, daily range): BP systolic 114–181; BP diastolic 63–128
[2016-09-20 04:48] LABS: CALCIUM, SERUM 8.7 mg/dL (8.5-10.1); CREATININE 1.5 mg/dL (0.6-1.3); POTASSIUM 3.5 mmol/L (3.5-5.1)
[2016-09-20] MEDS: GABAPENTIN 300 MG CAPSULE PO SCH ×2 (08:55→18:06)
[2016-09-20] MEDS: CHOLECALCIFEROL 1,000 UNIT TABLET (VIT D3) PO SCH (08:55)
[2016-09-20] MEDS: LEVOTHYROXINE SODIUM 125 MCG TABLET PO SCH (08:55)
[2016-09-20] MEDS: MUPIROCIN OINT 2% 22 GM TUBE SCH ×2 (08:57→22:15)
[2016-09-20] MEDS: PANTOPRAZOLE 40 MG VIAL IV SCH ×2 (10:04→22:13)
[2016-09-20] MEDS ORDERED: hydrALAZINE HCL 10 MG TABLET PO PRN ×2 (12:30)
[2016-09-20] MEDS ORDERED: SECONDARY IV SET 1 EA INFUS.SET MC ONE (12:33)
[2016-09-20] MEDS: CEFTRIAXONE 1 G in IV D5W 50 ML IV SCH (13:23)
[2016-09-20] MEDS: VANCOMYCIN 1 GM in IV D5W 250 ML IV SCH (16:59)
[2016-09-20] MEDS: NORTRIPTYLINE HCL 25 MG CAPSULE PO SCH (22:14)
[2016-09-21 04:00] VITALS: BP 135/77
[2016-09-21] MEDS: LEVOTHYROXINE SODIUM 125 MCG TABLET PO SCH (06:45)
[2016-09-21 07:34] LABS: BASOPHILS # (AUTO) 0.1 /CMM (0.0-0.2); BASOPHILS % (AUTO) 0.4 % (0.0-2.0); DIFF TOTAL % 100 %; EOSINOPHILS # (AUTO) 0.2 /CMM (0.0-0.7); EOSINOPHILS % (AUTO) 1.7 % (0.0-6.0); HEMATOCRIT 31 % (33-45); HEMOGLOBIN 10.3 g/dL (11.5-14.8); LYMPHOCYTES # (AUTO) 2.7 /CMM (0.8-4.8); LYMPHOCYTES % (AUTO) 19.2 % (20.0-44.0); MEAN CORPUSCULAR HEMOGLOBIN 30 PG (26.0-33.0); MEAN CORPUSCULAR HGB CONC 34 g/dl (31.0-36.0); MEAN CORPUSCULAR VOLUME 88 fL (82-100); MONOCYTES # (AUTO) 0.7 /CMM (0.1-1.30); MONOCYTES % (AUTO) 4.7 % (2.0-12.0); NEUTROPHILS # (AUTO) 10.5 /CMM (1.8-8.9); PLATELET COUNT (AUTO) 411 /CMM (150-450); RED BLOOD CELL COUNT(AUTO) 3.48 MIL/uL (4.0-5.2); WHITE BLOOD COUNT (AUTO) 14.2 K/uL (4.3-11.0)
[2016-09-21 07:54] LABS: ALBUMIN 2.8 g/dL (3.4-5.0); BILIRUBIN,DIRECT 0.1 mg/dL (0.0-0.2); BILIRUBIN,TOTAL 0.2 mg/dL (0.2-1.0); CALCIUM, SERUM 8.8 mg/dL (8.5-10.1); CREATININE 1.5 mg/dL (0.6-1.3); INDIRECT BILIRUBIN 0.1 mg/dL (0.0-1.1); PHOSPHORUS 3.2 mg/dL (2.5-4.9); POTASSIUM 3.5 mmol/L (3.5-5.1); TOTAL PROTEIN, SERUM 7.5 g/dL (6.4-8.2)
[2016-09-21 08:00] VITALS: BP 146/69
[2016-09-21] MEDS: PANTOPRAZOLE 40 MG VIAL IV SCH (09:20)
[2016-09-21] MEDS: GABAPENTIN 300 MG CAPSULE PO SCH ×2 (09:20→17:06)
[2016-09-21] MEDS: CHOLECALCIFEROL 1,000 UNIT TABLET (VIT D3) PO SCH (09:20)
[2016-09-21] MEDS: MUPIROCIN OINT 2% 22 GM TUBE SCH (09:21)
[2016-09-21] MEDS: CEFTRIAXONE 1 G in IV D5W 50 ML IV SCH (11:37)
[2016-09-21] MEDS ORDERED: VANC1VIA IV (12:36)
[2016-09-21] MEDS ORDERED: CEFT1VIA15 IV (12:36)
[2016-09-21 16:00] VITALS: BP 129/81
[2016-09-21] MEDS: VANCOMYCIN 1 GM in IV D5W 250 ML IV SCH (17:00)
[2016-09-21 17:20] VITALS: BP 140/68
[2016-09-21 17:32] VITALS: BP 140/60
== END 2016-09-21 17:30 | DRG 870 ==
LOC: ER 17:58 → TELE1 23:22 → ICU 09-12 07:15 → TELE 09-20 05:47 → MED 09-20 12:43
PROVIDERS: ADMIT Internal Medicine; ATTEND Internal Medicine
PROC: 5A1955Z Respiratory Ventilation, Greater than 96 Consecutive Hours (ICD-10-PCS; principal; 2016-09-12)
PROC: 0BH18EZ Insertion of Endotracheal Airway into Trachea, Via Natural or Artificial Opening Endoscopic (ICD-10-PCS; 2016-09-12)
PROC: 02HV33Z Insertion of Infusion Device into Superior Vena Cava, Percutaneous Approach (ICD-10-PCS; 2016-09-12)
PROC: B548ZZA Ultrasonography of Superior Vena Cava, Guidance (ICD-10-PCS; 2016-09-12)
DX: A41.9 Sepsis, unspecified organism (principal); G92 Toxic encephalopathy; N17.0 Acute kidney failure with tubular necrosis; J96.01 Acute respiratory failure with hypoxia; J69.0 Pneumonitis due to inhalation of food and vomit; J15.212 Pneumonia due to Methicillin resistant Staphylococcus aureus; F11.20 Opioid dependence, uncomplicated; N11.9 Chronic tubulo-interstitial nephritis, unspecified; K92.2 Gastrointestinal hemorrhage, unspecified; E87.2 Acidosis; N39.0 Urinary tract infection, site not specified; F13.20 Sedative, hypnotic or anxiolytic dependence, uncomplicated; I13.0 Hypertensive heart and chronic kidney disease with heart failure and stage 1 through stage 4 chronic kidney disease, or unspecified chronic kidney disease; E86.0 Dehydration; E03.9 Hypothyroidism, unspecified; D64.9 Anemia, unspecified; E87.6 Hypokalemia; G89.4 Chronic pain syndrome; N18.9 Chronic kidney disease, unspecified; K21.9 Gastro-esophageal reflux disease without esophagitis; M79.7 Fibromyalgia; G35 Multiple sclerosis; F32.9 Major depressive disorder, single episode, unspecified; Z22.322 Carrier or suspected carrier of Methicillin resistant Staphylococcus aureus; B96.4 Proteus (mirabilis) (morganii) as the cause of diseases classified elsewhere; R65.20 Severe sepsis without septic shock; I50.9 Heart failure, unspecified
CPT/HCPCS: 31720; 36415; 36600; 71010-TC; 74000-TC; 76705-TC; 76770-TC; 80048-TC; 80053-TC; 80061-TC; 80076-TC; 80202-TC; 81000-TC; 82140-TC; 82150-TC; 82272-TC; 82306; 82728-TC; 82803-TC; 83540-TC; 83605-TC; 83690-TC; 83735-TC; 83880; 84100-TC; 84439-TC; 84443-TC; 84484-TC; 85025-TC; 85027-TC; 85730-TC; 86850-TC; 86921-TC; 87040-TC; 87070-TC; 87081-TC; 87086-TC; 87186-TC; 92611-TC; 93307-TC; 94002-TC; 94003-TC; 94760-TC; A4216; A4606; C1751; C9113; G0434; J0330; J0360; J0696; J1940; J1956; J2060; J2250; J2270; J2354; J2405; J2543; J3010; J3370; J3475; J3480; J3490; J7030; J7040; J7050; J7060; Z7610

== ENCOUNTER 2016-09-27 19:49 | Emergency (ER) | payer MEDICARE ==
[~2016-09-27] VITALS: Ht 165.1 cm; Wt 81.6 kg
[~2016-09-27 19:49] MED LIST changes: +CEFT1VIA15 IV; +CHOL100044 PO; -DIAZ10TA PO; -DIPH25CA83 PO; +GABA-534 PO; +GLAT40SY SQ; +IPRA3AMP IH; +LEVO125T8 PO; -LEVO500T15 PO; +MORP30TA PO; +NORT25CA PO; +VANC1VIA IV; +VITA80008 PO
[2016-09-27 22:12] VITALS: BP 118/78
== END 2016-09-28 01:58 | disposition home or self-care (01) ==
LOC: ER 19:50
DX: Z45.2 Encounter for adjustment and management of vascular access device (principal); F32.9 Major depressive disorder, single episode, unspecified; Z79.82 Long term (current) use of aspirin; F17.210 Nicotine dependence, cigarettes, uncomplicated; G35 Multiple sclerosis
CPT/HCPCS: 36569; 99284; A4606; Z7610

== ENCOUNTER 2016-11-23 23:13 | Inpatient (IN) | payer MEDICARE ==
[~2016-11-23] VITALS: Ht 162.6 cm; Wt 73.9 kg
[~2016-11-23 23:13] MED LIST changes: +OXYC-34 PO; -[UNRECOGNIZED DRUG - CODE] PO
[2016-11-23] MEDS ORDERED: MORPHINE SULFATE INJ 2 MG/ML DISP.SYRIN IV ONE (23:30)
[2016-11-23] MEDS ORDERED: ALBUTEROL FS 2.5 MG/3 ML VIAL.NEB NEB ONE (23:30)
[2016-11-23] MEDS ORDERED: FUROSEMIDE 40 MG/4 ML VIAL IV ONE (23:30)
[2016-11-23] MEDS ORDERED: FENTANYL PF 100MCG/2ML AMPUL ONE (23:37)
[2016-11-23] MEDS ORDERED: PROPOFOL 100 ML IV ONE (23:44)
[2016-11-23] MEDS ORDERED: IV SET PRIMARY PUMP SET 1 EA INFUS.SET MC ONE (23:44)
[2016-11-24] VITALS (89 sets, daily range): BP systolic 71–164; BP diastolic 35–94
[2016-11-24] MEDS ORDERED: FENTANYL PF 100MCG/2ML AMPUL IV ONE
[2016-11-24] MEDS ORDERED: PROPOFOL 100 ML IV ONE
[2016-11-24 00:04] LABS: ABG BASE EXCESS 0.2 mmol/L; ABG PCO2 41.1 mmHg (35.0-45.0); ABG PH 7.402 (7.350-7.450); ABG PO2 46.4 mmHg (75.0-100.0); ABG TOTAL HEMOGLOBIN 13.9 G/dL (12.0-16.0); O2Hb 80.2 % (94.0-97.0)
[2016-11-24] MEDS ORDERED: MORPHINE SULFATE INJ 2 MG/ML DISP.SYRIN ONE (00:07)
[2016-11-24] MEDS ORDERED: MORPHINE SULFATE INJ 4 MG/ML DISP.SYRIN ONE (00:07)
[2016-11-24] MEDS ORDERED: PANTOPRAZOLE 40 MG VIAL ONE (00:07)
[2016-11-24] MEDS ORDERED: IV NS 0.9% 100 ML IV ONE ×2 (00:08→04:08)
[2016-11-24] MEDS ORDERED: FUROSEMIDE 40 MG/4 ML VIAL ONE (00:08)
[2016-11-24] MEDS ORDERED: IV NS 0.9% 500 ML IV ONE (00:08)
[2016-11-24] MEDS ORDERED: IV SET PRIMARY PUMP SET 1 EA INFUS.SET MC ONE ×4 (00:08→23:40)
[2016-11-24] MEDS ORDERED: IV SET PRIMARY 1 EA INFUS.SET MC ONE (00:08)
[2016-11-24 00:21] LABS: BASOPHILS % (AUTO) 0.2 % (0.0-2.0); DIFF TOTAL % 100 %; HEMATOCRIT 37 % (33-45); HEMOGLOBIN 12.3 g/dL (11.5-14.8); LYMPHOCYTES # (AUTO) 1.1 /CMM (0.8-4.8); LYMPHOCYTES % (AUTO) 15.5 % (20.0-44.0); MEAN CORPUSCULAR HEMOGLOBIN 30 PG (26.0-33.0); MEAN CORPUSCULAR HGB CONC 33 g/dl (31.0-36.0); MEAN CORPUSCULAR VOLUME 89 fL (82-100); MONOCYTES # (AUTO) 0.1 /CMM (0.1-1.30); MONOCYTES % (AUTO) 1.4 % (2.0-12.0); NEUTROPHILS # (AUTO) 5.6 /CMM (1.8-8.9); NEUTROPHILS % (AUTO) 82.9 % (43.0-81.0); PLATELET COUNT (AUTO) 449 /CMM (150-450); RED BLOOD CELL COUNT(AUTO) 4.17 MIL/uL (4.0-5.2); WHITE BLOOD COUNT (AUTO) 6.8 K/uL (4.3-11.0)
[2016-11-24 00:29] LABS: ANION GAP 19 (5-14); CALCIUM, SERUM 9.9 mg/dL (8.5-10.1); CARBON DIOXIDE 27 mmol/L (21-32); CHLORIDE 102 mmol/L (98-107); CREATININE 1.8 mg/dL (0.6-1.3); GFR 29 mL/min (>60); GLUCOSE 299 mg/dL (74-106); SODIUM SERUM 145 mmol/L (136-145); UREA NITROGEN, BLOOD 38 mg/dL (7-18)
[2016-11-24] MEDS ORDERED: Z GUARD REMEDY 2 OZ OINT TP PRN (00:30)
[2016-11-24] MEDS ORDERED: ONDANSETRON HCL/PF 4 MG/2 ML VIAL IVP PRN (00:30)
[2016-11-24] MEDS ORDERED: MAG HYDROX/AL HYDROX/SIMETH 30 ML UDC PO PRN (00:30)
[2016-11-24] MEDS ORDERED: PANTOPRAZOLE 80 MG in IV NS 0.9% 100 ML IV ONE (00:30)
[2016-11-24] MEDS ORDERED: PANTOPRAZOLE 80 MG in IV NS 0.9% 500 ML IV PRN ×2 (00:30→01:30)
[2016-11-24] MEDS ORDERED: IPRATROPIUM NEB FS 0.5 MG/2.5 ML AMPUL.NEB NEB PRN (00:30)
[2016-11-24] MEDS ORDERED: IV NS 0.9% 1,000 ML IV PRN ×2 (00:30→03:30)
[2016-11-24] MEDS ORDERED: HYDROCODONE/APAP 5/325MG 1 EACH TABLET PO PRN (00:30)
[2016-11-24 00:36] LABS: TROPONIN I < 0.017 ng/mL (0.00-0.056)
[2016-11-24] MEDS ORDERED: HYDROMORPHONE INJ 2 MG/ML DISP.SYRIN ONE (00:38)
[2016-11-24 00:40] LABS: INR 1.05 (0.87-1.13); PROTHROMBIN TIME 11.3 SECS (9.5-12.7)
[2016-11-24 00:41] LABS: ALANINE AMINOTRANSFERASE 40 U/L (12-78); ALBUMIN 3.7 g/dL (3.4-5.0); ASPARTATE AMINOTRANSFERASE 21 U/L (15-37); BILIRUBIN,DIRECT 0.1 mg/dL (0.0-0.2); BILIRUBIN,TOTAL 0.5 mg/dL (0.2-1.0); INDIRECT BILIRUBIN 0.4 mg/dL (0.0-1.1); TOTAL PROTEIN, SERUM 8.8 g/dL (6.4-8.2)
[2016-11-24] MEDS ORDERED: HYDROMORPHONE 1 MG/1 ML DISP.SYRIN IV ONE (01:00)
[2016-11-24] MEDS ORDERED: INSULIN REGULAR, HUMAN 100 UNIT/ML 3 ML VIAL SQ PRN (01:00)
[2016-11-24] MEDS ORDERED: DEXTROSE 50%-WATER 50 ML DISP.SYRIN IV PRN (01:00)
[2016-11-24 01:17] LABS: KETONES,URINE TRACE (NEGATIVE); LEUKOCYTE ESTERASE ,URINE 1+ (NEGATIVE); PH,URINE 5.5 (5.0-8.0)
[2016-11-24] MEDS ORDERED: VANCOMYCIN 1 GM in IV D5W 250 ML IV SCH (01:30)
[2016-11-24 01:31] LABS: ADD UA MICROSCOPIC YES
[2016-11-24 01:38] LABS: ADD URINE CULTURE YES
[2016-11-24 01:40] LABS: LACTIC ACID 4.3 mmol/L (0.4-2.0)
[2016-11-24 01:41] LABS: *LACTIC ACID REFLEX FLAG YES
[2016-11-24] MEDS: PROPOFOL 100 ML IV PRN ×4 (01:47→23:49)
[2016-11-24] MEDS ORDERED: VANCOMYCIN 1 GM VIAL ONE (02:04)
[2016-11-24] MEDS ORDERED: IV D5W 250 ML IV ONE (02:05)
[2016-11-24] MEDS ORDERED: IV NS 0.9% 1,000 ML ONE (02:05)
[2016-11-24] MEDS ORDERED: SECONDARY IV SET 1 EA INFUS.SET MC ONE ×3 (02:31→19:36)
[2016-11-24] MEDS ORDERED: IV NS 0.9% 1,000 ML IV ONE (03:30)
[2016-11-24] MEDS ORDERED: MEROPENEM 1 G VIAL IV ONE (04:41)
[2016-11-24] MEDS ORDERED: MEROPENEM 1 G in IV NS 0.9% 100 ML IV SCH (05:00)
[2016-11-24] MEDS: BLOOD SUGAR DIAGNOSTIC 1 EACH STRIP IN SCH ×4 (05:05→23:48)
[2016-11-24] MEDS ORDERED: ENOXAPARIN SODIUM 80 MG/0.8 ML DISP.SYRIN SQ ONE ×2 (06:00→06:03)
[2016-11-24] MEDS ORDERED: PANTOPRAZOLE 40 MG TABLET.DR PO SCH (07:30)
[2016-11-24] MEDS ORDERED: LEVOTHYROXINE SODIUM 125 MCG TABLET PO SCH (07:30)
[2016-11-24] MEDS ORDERED: ALBUTEROL FS 2.5 MG/3 ML VIAL.NEB NEB PRN (07:35)
[2016-11-24] MEDS ORDERED: FEE PK DOSING 1 MIN EA MC ONE (07:51)
[2016-11-24] MEDS ORDERED: ETOMIDATE 2 MG/ML VIAL IV ONE ×2 (08:05)
[2016-11-24] MEDS ORDERED: ROCURONIUM BROMIDE 100 MG/10 ML VIAL IV ONE ×2 (08:05)
[2016-11-24] MEDS: POTASSIUM CHLORIDE 20 MEQ TAB.PRT.SR PO SCH ×4 (09:40→11:07)
[2016-11-24] MEDS: ASPIRIN 81 MG TAB.CHEW PO SCH (09:40)
[2016-11-24] MEDS ORDERED: IV NS 0.9% 500 ML IV STA (09:52)
[2016-11-24 10:11] LABS: BASOPHILS % (AUTO) 0.3 % (0.0-2.0); DIFF TOTAL % 100 %; EOSINOPHILS % (AUTO) 0.6 % (0.0-6.0); HEMATOCRIT 32 % (33-45); HEMOGLOBIN 10.7 g/dL (11.5-14.8); LYMPHOCYTES % (AUTO) 13.1 % (20.0-44.0); MEAN CORPUSCULAR HEMOGLOBIN 30 PG (26.0-33.0); MEAN CORPUSCULAR HGB CONC 33 g/dl (31.0-36.0); MEAN CORPUSCULAR VOLUME 89 fL (82-100); MONOCYTES # (AUTO) 0.1 /CMM (0.1-1.30); MONOCYTES % (AUTO) 1.8 % (2.0-12.0); NEUTROPHILS # (AUTO) 6.2 /CMM (1.8-8.9); NEUTROPHILS % (AUTO) 84.2 % (43.0-81.0); PLATELET COUNT (AUTO) 332 /CMM (150-450); RED BLOOD CELL COUNT(AUTO) 3.61 MIL/uL (4.0-5.2); WHITE BLOOD COUNT (AUTO) 7.4 K/uL (4.3-11.0)
[2016-11-24 10:22] LABS: CALCIUM, SERUM 8.6 mg/dL (8.5-10.1); CREATININE 2.3 mg/dL (0.6-1.3); POTASSIUM 3.7 mmol/L (3.5-5.1)
[2016-11-24] MEDS: IV NS 0.9% 1,000 ML IV PRN ×3 (10:33→22:18)
[2016-11-24] MEDS: OSELTAMIVIR PHOSPHATE 75 MG CAPSULE PO SCH ×2 (11:07→19:41)
[2016-11-24] MEDS ORDERED: NOREPINEPHRINE 16 MG in IV D5W 500 ML IV PRN (12:00)
[2016-11-24] MEDS ORDERED: GLYTROL 1,000 ML BAG GT PRN (12:00)
[2016-11-24 12:13] LABS: THYROID STIMULATING HORMONE 0.084 uIU/mL (0.358-3.74)
[2016-11-24] MEDS: MEROPENEM 500 MG in IV NS 0.9% 50 ML IV SCH (17:57)
[2016-11-24] MEDS: ACETAMINOPHEN 325 MG TABLET PO PRN (19:41)
[2016-11-24] MEDS: Magnesium 1GM/D5W 100ML PREMIX 100 ML IV SCH ×2 (19:41→20:56)
[2016-11-24] MEDS: PANTOPRAZOLE 40 MG VIAL IV SCH (20:56)
[2016-11-24] MEDS ORDERED: ZOLPIDEM TARTRATE 5 MG TABLET PO PRN (22:00)
[2016-11-24] MEDS ORDERED: MAGNESIUM HYDROXIDE 30 ML UDC PO PRN (22:00)
[2016-11-25] VITALS (93 sets, daily range): BP systolic 83–141; BP diastolic 36–80
[2016-11-25] MEDS ORDERED: IV SET PRIMARY PUMP SET 1 EA INFUS.SET MC ONE (00:24)
[2016-11-25] MEDS: VANCOMYCIN 1 GM in IV D5W 250 ML IV SCH (02:06)
[2016-11-25] MEDS: PROPOFOL 100 ML IV PRN ×6 (02:50→20:34)
[2016-11-25] MEDS: IV NS 0.9% 1,000 ML IV PRN ×2 (04:04→12:52)
[2016-11-25] MEDS: BLOOD SUGAR DIAGNOSTIC 1 EACH STRIP IN SCH ×4 (05:11→23:08)
[2016-11-25] MEDS: MEROPENEM 500 MG in IV NS 0.9% 50 ML IV SCH ×2 (05:12→16:12)
[2016-11-25 05:23] LABS: CREATININE, URINE 33.6 MG/DL (30.0-125.0)
[2016-11-25 05:24] LABS: ALANINE AMINOTRANSFERASE 20 U/L (12-78); ANION GAP 14 (5-14); ASPARTATE AMINOTRANSFERASE 9 U/L (15-37); BILIRUBIN,TOTAL 0.4 mg/dL (0.2-1.0); CALCIUM, SERUM 7.6 mg/dL (8.5-10.1); CARBON DIOXIDE 21 mmol/L (21-32); CHLORIDE 112 mmol/L (98-107); CREATININE 2.1 mg/dL (0.6-1.3); GFR 24 mL/min (>60); GLUCOSE 110 mg/dL (74-106); PHOSPHORUS 2.8 mg/dL (2.5-4.9); SODIUM SERUM 143 mmol/L (136-145); TOTAL PROTEIN, SERUM 5.9 g/dL (6.4-8.2); UREA NITROGEN, BLOOD 48 mg/dL (7-18)
[2016-11-25 05:26] LABS: TROPONIN I < 0.017 ng/mL (0.00-0.056)
[2016-11-25 05:28] LABS: BASOPHILS % (AUTO) 0.3 % (0.0-2.0); DIFF TOTAL % 100 %; EOSINOPHILS # (AUTO) 0.5 /CMM (0.0-0.7); EOSINOPHILS % (AUTO) 3.9 % (0.0-6.0); HEMATOCRIT 24 % (33-45); HEMOGLOBIN 8.1 g/dL (11.5-14.8); LYMPHOCYTES # (AUTO) 2.1 /CMM (0.8-4.8); LYMPHOCYTES % (AUTO) 16.1 % (20.0-44.0); MEAN CORPUSCULAR HEMOGLOBIN 30 PG (26.0-33.0); MEAN CORPUSCULAR HGB CONC 33 g/dl (31.0-36.0); MEAN CORPUSCULAR VOLUME 89 fL (82-100); MONOCYTES # (AUTO) 0.3 /CMM (0.1-1.30); MONOCYTES % (AUTO) 2.1 % (2.0-12.0); NEUTROPHILS % (AUTO) 77.6 % (43.0-81.0); PLATELET COUNT (AUTO) 271 /CMM (150-450); RED BLOOD CELL COUNT(AUTO) 2.73 MIL/uL (4.0-5.2); WHITE BLOOD COUNT (AUTO) 12.9 K/uL (4.3-11.0)
[2016-11-25 05:33] LABS: CHOLESTEROL 86 mg/dL (<200); HDL CHOLESTEROL 11 mg/dL (40-60); LDL 24 mg/dL (0-99); THYROID STIMULATING HORMONE 0.109 uIU/mL (0.358-3.74); TRIGLYCERIDES 310 mg/dL (30-150)
[2016-11-25 05:36] LABS: LACTIC ACID 0.8 mmol/L (0.4-2.0)
[2016-11-25 06:32] LABS: ANISOCYTOSIS 1+; BAND % (MANUAL) 46 % (0.0-5.0); EOSINOPHILS % (MANUAL) 2 % (0-4); HYPOCHROMASIA 3+; LYMPHOCYTES % (MANUAL) 17 % (16-48); PLATELET ESTIMATE ADEQUATE
[2016-11-25] MEDS: OSELTAMIVIR PHOSPHATE 75 MG CAPSULE PO SCH ×2 (08:30→17:00)
[2016-11-25] MEDS: PANTOPRAZOLE 40 MG VIAL IV SCH ×2 (08:30→20:19)
[2016-11-25] MEDS: ASPIRIN 81 MG TAB.CHEW PO SCH (08:30)
[2016-11-25 08:51] LABS: ABG BASE EXCESS -6.9 mmol/L; ABG PO2 110.9 mmHg (75.0-100.0); ABG TOTAL HEMOGLOBIN 8.4 G/dL (12.0-16.0); ALLEN TEST Pass; AaDO2 142.1 mmHg; O2Hb 95.9 % (94.0-97.0)
[2016-11-25] MEDS ORDERED: ENOXAPARIN SODIUM 30 MG/0.3 ML DISP.SYRIN SQ SCH (09:00)
[2016-11-25] MEDS ORDERED: METOCLOPRAMIDE HCL 10 MG/2 ML VIAL IV ONE (14:00)
[2016-11-25] MEDS ORDERED: SECONDARY IV SET 1 EA INFUS.SET MC ONE (14:07)
[2016-11-25] MEDS: SOD FERRIC GLUC 125 MG in IV NS 0.9% 100 ML IV SCH (14:12)
[2016-11-25] MEDS: HEPARIN SODIUM, PORCINE 5000 UNITS/1 ML VIAL SQ SCH (20:20)
[2016-11-25] MEDS: ACETAMINOPHEN 325 MG TABLET PO PRN (23:08)
[2016-11-26] VITALS (63 sets, daily range): BP systolic 69–170; BP diastolic 42–111
[2016-11-26] MEDS: PROPOFOL 100 ML IV PRN (01:35)
[2016-11-26] MEDS: IV NS 0.9% 1,000 ML IV PRN ×2 (01:35→16:31)
[2016-11-26] MEDS: VANCOMYCIN 1 GM in IV D5W 250 ML IV SCH (01:35)
[2016-11-26] MEDS: MEROPENEM 500 MG in IV NS 0.9% 50 ML IV SCH ×2 (04:21→16:30)
[2016-11-26 05:06] LABS: BASOPHILS % (AUTO) 0.2 % (0.0-2.0); DIFF TOTAL % 100 %; EOSINOPHILS # (AUTO) 0.4 /CMM (0.0-0.7); EOSINOPHILS % (AUTO) 3.2 % (0.0-6.0); HEMATOCRIT 23 % (33-45); HEMOGLOBIN 7.9 g/dL (11.5-14.8); LYMPHOCYTES # (AUTO) 1.3 /CMM (0.8-4.8); LYMPHOCYTES % (AUTO) 11.3 % (20.0-44.0); MEAN CORPUSCULAR HEMOGLOBIN 30 PG (26.0-33.0); MEAN CORPUSCULAR HGB CONC 34 g/dl (31.0-36.0); MEAN CORPUSCULAR VOLUME 89 fL (82-100); MONOCYTES # (AUTO) 0.7 /CMM (0.1-1.30); MONOCYTES % (AUTO) 5.8 % (2.0-12.0); NEUTROPHILS % (AUTO) 79.5 % (43.0-81.0); PLATELET COUNT (AUTO) 244 /CMM (150-450); WHITE BLOOD COUNT (AUTO) 11.3 K/uL (4.3-11.0)
[2016-11-26 05:11] LABS: BILIRUBIN,TOTAL 0.3 mg/dL (0.2-1.0); CALCIUM, SERUM 8.4 mg/dL (8.5-10.1); CREATININE 1.3 mg/dL (0.6-1.3); PHOSPHORUS 3.1 mg/dL (2.5-4.9); POTASSIUM 3.3 mmol/L (3.5-5.1)
[2016-11-26] MEDS: BLOOD SUGAR DIAGNOSTIC 1 EACH STRIP IN SCH ×3 (05:54→17:11)
[2016-11-26] MEDS: PANTOPRAZOLE 40 MG VIAL IV SCH ×2 (08:02→20:32)
[2016-11-26] MEDS: OSELTAMIVIR PHOSPHATE 75 MG CAPSULE PO SCH ×2 (08:02→16:30)
[2016-11-26] MEDS: ASPIRIN 81 MG TAB.CHEW PO SCH (08:02)
[2016-11-26] MEDS: HEPARIN SODIUM, PORCINE 5000 UNITS/1 ML VIAL SQ SCH ×2 (08:06→20:33)
[2016-11-26] MEDS: POTASSIUM CHLORIDE 20 MEQ TAB.PRT.SR PO SCH ×2 (09:31→10:24)
[2016-11-26 10:04] LABS: ABG BASE EXCESS -4.1 mmol/L; ABG HCO3 18.3 mmol/L; ABG PCO2 24.8 mmHg (35.0-45.0); ABG PH 7.486 (7.350-7.450); ABG PO2 107.5 mmHg (75.0-100.0); ALLEN TEST Pass; AaDO2 77.3 mmHg; O2Hb 95.3 % (94.0-97.0)
[2016-11-26] MEDS: SOD FERRIC GLUC 125 MG in IV NS 0.9% 100 ML IV SCH (13:38)
[2016-11-27] VITALS (24 sets, daily range): BP systolic 134–170; BP diastolic 60–115
[2016-11-27] MEDS: BLOOD SUGAR DIAGNOSTIC 1 EACH STRIP IN SCH ×5 (00:19→23:42)
[2016-11-27] MEDS: VANCOMYCIN 1 GM in IV D5W 250 ML IV SCH (02:25)
[2016-11-27 05:11] LABS: ALBUMIN 2.5 g/dL (3.4-5.0); BILIRUBIN,TOTAL 0.4 mg/dL (0.2-1.0); CALCIUM, SERUM 8.9 mg/dL (8.5-10.1); PHOSPHORUS 2.5 mg/dL (2.5-4.9); POTASSIUM 2.9 mmol/L (3.5-5.1); TOTAL PROTEIN, SERUM 7.2 g/dL (6.4-8.2)
[2016-11-27] MEDS: MEROPENEM 500 MG in IV NS 0.9% 50 ML IV SCH ×2 (05:34→17:51)
[2016-11-27] MEDS: IV NS 0.9% 1,000 ML IV PRN ×2 (06:40→21:59)
[2016-11-27] MEDS ORDERED: POTASSIUM CHLORIDE 20 MEQ TAB.PRT.SR PO SCH (08:00)
[2016-11-27 08:01] LABS: BASOPHILS % (AUTO) 0.2 % (0.0-2.0); DIFF TOTAL % 100 %; EOSINOPHILS % (AUTO) 0.3 % (0.0-6.0); HEMATOCRIT 27 % (33-45); LYMPHOCYTES # (AUTO) 1.3 /CMM (0.8-4.8); LYMPHOCYTES % (AUTO) 11.9 % (20.0-44.0); MEAN CORPUSCULAR HEMOGLOBIN 29 PG (26.0-33.0); MEAN CORPUSCULAR HGB CONC 33 g/dl (31.0-36.0); MEAN CORPUSCULAR VOLUME 89 fL (82-100); MONOCYTES # (AUTO) 0.8 /CMM (0.1-1.30); MONOCYTES % (AUTO) 7.6 % (2.0-12.0); NEUTROPHILS # (AUTO) 8.4 /CMM (1.8-8.9); PLATELET COUNT (AUTO) 309 /CMM (150-450); RED BLOOD CELL COUNT(AUTO) 3.08 MIL/uL (4.0-5.2); WHITE BLOOD COUNT (AUTO) 10.5 K/uL (4.3-11.0)
[2016-11-27] MEDS ORDERED: SECONDARY IV SET 1 EA INFUS.SET MC ONE (08:06)
[2016-11-27] MEDS: OSELTAMIVIR PHOSPHATE 75 MG CAPSULE PO SCH ×2 (08:17→17:51)
[2016-11-27] MEDS: PANTOPRAZOLE 40 MG VIAL IV SCH ×2 (08:17→21:00)
[2016-11-27] MEDS: ASPIRIN 81 MG TAB.CHEW PO SCH (08:17)
[2016-11-27] MEDS: HEPARIN SODIUM, PORCINE 5000 UNITS/1 ML VIAL SQ SCH ×2 (08:18→21:03)
[2016-11-27] MEDS: Magnesium 1GM/D5W 100ML PREMIX 100 ML IV SCH ×2 (08:36→10:34)
[2016-11-27] MEDS ORDERED: POTASSIUM CHLORIDE 10 MEQ/50 ML PREMIXED IVPB FOR PERIPHERAL LINE IV ONE (09:00)
[2016-11-27] MEDS ORDERED: IV SET PRIMARY PUMP SET 1 EA INFUS.SET MC ONE ×2 (10:24→14:47)
[2016-11-27] MEDS: SOD FERRIC GLUC 125 MG in IV NS 0.9% 100 ML IV SCH (14:53)
[2016-11-28] VITALS (12 sets, daily range): BP systolic 140–179; BP diastolic 57–89
[2016-11-28] MEDS: VANCOMYCIN 1 GM in IV D5W 250 ML IV SCH (01:33)
[2016-11-28] MEDS: MEROPENEM 500 MG in IV NS 0.9% 50 ML IV SCH ×2 (04:09→18:20)
[2016-11-28 05:31] LABS: BASOPHILS % (AUTO) 0.3 % (0.0-2.0); DIFF TOTAL % 100 %; EOSINOPHILS # (AUTO) 0.1 /CMM (0.0-0.7); EOSINOPHILS % (AUTO) 0.4 % (0.0-6.0); HEMATOCRIT 30 % (33-45); HEMOGLOBIN 10.2 g/dL (11.5-14.8); LYMPHOCYTES # (AUTO) 1.9 /CMM (0.8-4.8); LYMPHOCYTES % (AUTO) 13.3 % (20.0-44.0); MEAN CORPUSCULAR HEMOGLOBIN 30 PG (26.0-33.0); MEAN CORPUSCULAR HGB CONC 34 g/dl (31.0-36.0); MEAN CORPUSCULAR VOLUME 88 fL (82-100); MONOCYTES # (AUTO) 0.8 /CMM (0.1-1.30); MONOCYTES % (AUTO) 5.8 % (2.0-12.0); NEUTROPHILS # (AUTO) 11.2 /CMM (1.8-8.9); NEUTROPHILS % (AUTO) 80.2 % (43.0-81.0); PLATELET COUNT (AUTO) 417 /CMM (150-450)
[2016-11-28] MEDS: BLOOD SUGAR DIAGNOSTIC 1 EACH STRIP IN SCH ×3 (05:37→17:41)
[2016-11-28 05:40] LABS: CALCIUM, SERUM 8.8 mg/dL (8.5-10.1); CREATININE 0.9 mg/dL (0.6-1.3); POTASSIUM 3.4 mmol/L (3.5-5.1)
[2016-11-28] MEDS ORDERED: IV SET PRIMARY PUMP SET 1 EA INFUS.SET MC ONE (06:33)
[2016-11-28] MEDS: IV NS 0.9% 1,000 ML IV PRN ×2 (06:41→21:31)
[2016-11-28] MEDS ORDERED: POTASSIUM CHLORIDE 20 MEQ TAB.PRT.SR PO SCH ×2 (08:00→12:00)
[2016-11-28] MEDS: OSELTAMIVIR PHOSPHATE 75 MG CAPSULE PO SCH ×2 (10:55→18:19)
[2016-11-28] MEDS: PANTOPRAZOLE 40 MG VIAL IV SCH ×2 (10:55→21:30)
[2016-11-28] MEDS: ASPIRIN 81 MG TAB.CHEW PO SCH (10:55)
[2016-11-28] MEDS: HEPARIN SODIUM, PORCINE 5000 UNITS/1 ML VIAL SQ SCH ×2 (10:56→21:31)
[2016-11-28] MEDS: SOD FERRIC GLUC 125 MG in IV NS 0.9% 100 ML IV SCH (14:22)
[2016-11-28] MEDS ORDERED: SECONDARY IV SET 1 EA INFUS.SET MC ONE ×2 (14:22→18:22)
[2016-11-29] MEDS: BLOOD SUGAR DIAGNOSTIC 1 EACH STRIP IN SCH ×4 (00:22→17:02)
[2016-11-29] MEDS ORDERED: SECONDARY IV SET 1 EA INFUS.SET MC ONE ×2 (03:09→14:21)
[2016-11-29] MEDS: VANCOMYCIN 1 GM in IV D5W 250 ML IV SCH (03:10)
[2016-11-29] MEDS: MEROPENEM 500 MG in IV NS 0.9% 50 ML IV SCH ×2 (04:22→16:51)
[2016-11-29 06:51] LABS: BASOPHILS % (AUTO) 0.2 % (0.0-2.0); DIFF TOTAL % 100 %; EOSINOPHILS # (AUTO) 0.1 /CMM (0.0-0.7); EOSINOPHILS % (AUTO) 0.7 % (0.0-6.0); HEMATOCRIT 29 % (33-45); HEMOGLOBIN 9.8 g/dL (11.5-14.8); LYMPHOCYTES # (AUTO) 2.3 /CMM (0.8-4.8); LYMPHOCYTES % (AUTO) 13.9 % (20.0-44.0); MEAN CORPUSCULAR HEMOGLOBIN 29 PG (26.0-33.0); MEAN CORPUSCULAR HGB CONC 33 g/dl (31.0-36.0); MEAN CORPUSCULAR VOLUME 88 fL (82-100); MONOCYTES # (AUTO) 1.4 /CMM (0.1-1.30); MONOCYTES % (AUTO) 8.5 % (2.0-12.0); NEUTROPHILS # (AUTO) 12.5 /CMM (1.8-8.9); NEUTROPHILS % (AUTO) 76.7 % (43.0-81.0); PLATELET COUNT (AUTO) 397 /CMM (150-450); RED BLOOD CELL COUNT(AUTO) 3.33 MIL/uL (4.0-5.2); WHITE BLOOD COUNT (AUTO) 16.3 K/uL (4.3-11.0)
[2016-11-29 06:58] LABS: CALCIUM, SERUM 8.7 mg/dL (8.5-10.1); CREATININE 0.9 mg/dL (0.6-1.3); POTASSIUM 3.3 mmol/L (3.5-5.1)
[2016-11-29 08:00] VITALS: BP 158/76
[2016-11-29] MEDS: OSELTAMIVIR PHOSPHATE 75 MG CAPSULE PO SCH ×2 (08:47→16:51)
[2016-11-29] MEDS: PANTOPRAZOLE 40 MG VIAL IV SCH ×2 (08:49→21:57)
[2016-11-29] MEDS: ASPIRIN 81 MG TAB.CHEW PO SCH (08:49)
[2016-11-29] MEDS ORDERED: POTASSIUM CHLORIDE 20 MEQ TAB.PRT.SR PO SCH (11:00)
[2016-11-29] MEDS: HEPARIN SODIUM, PORCINE 5000 UNITS/1 ML VIAL SQ SCH ×2 (11:19→22:08)
[2016-11-29] MEDS: SOD FERRIC GLUC 125 MG in IV NS 0.9% 100 ML IV SCH (14:25)
[2016-11-29 16:00] VITALS: BP 168/67
[2016-11-29 20:54] VITALS: BP 134/89
[2016-11-29] MEDS: IV NS 0.9% 1,000 ML IV PRN (22:02)
[2016-11-30] MEDS: BLOOD SUGAR DIAGNOSTIC 1 EACH STRIP IN SCH ×3 (00:26→11:18)
[2016-11-30] MEDS: VANCOMYCIN 1 GM in IV D5W 250 ML IV SCH (01:35)
[2016-11-30] MEDS: MEROPENEM 500 MG in IV NS 0.9% 50 ML IV SCH (05:55)
[2016-11-30 07:37] LABS: BASOPHILS # (AUTO) 0.1 /CMM (0.0-0.2); BASOPHILS % (AUTO) 0.3 % (0.0-2.0); DIFF TOTAL % 100 %; EOSINOPHILS # (AUTO) 0.1 /CMM (0.0-0.7); EOSINOPHILS % (AUTO) 0.7 % (0.0-6.0); HEMATOCRIT 32 % (33-45); HEMOGLOBIN 10.7 g/dL (11.5-14.8); LYMPHOCYTES # (AUTO) 2.5 /CMM (0.8-4.8); LYMPHOCYTES % (AUTO) 13.7 % (20.0-44.0); MEAN CORPUSCULAR HEMOGLOBIN 30 PG (26.0-33.0); MEAN CORPUSCULAR HGB CONC 34 g/dl (31.0-36.0); MEAN CORPUSCULAR VOLUME 88 fL (82-100); MONOCYTES # (AUTO) 1.2 /CMM (0.1-1.30); MONOCYTES % (AUTO) 6.3 % (2.0-12.0); NEUTROPHILS # (AUTO) 14.3 /CMM (1.8-8.9); PLATELET COUNT (AUTO) 443 /CMM (150-450); RED BLOOD CELL COUNT(AUTO) 3.59 MIL/uL (4.0-5.2); WHITE BLOOD COUNT (AUTO) 18.1 K/uL (4.3-11.0)
[2016-11-30 07:57] LABS: CREATININE 0.9 mg/dL (0.6-1.3); POTASSIUM 3.5 mmol/L (3.5-5.1)
[2016-11-30 08:00] VITALS: BP 152/85
[2016-11-30] MEDS: PANTOPRAZOLE 40 MG VIAL IV SCH (08:55)
[2016-11-30] MEDS: ASPIRIN 81 MG TAB.CHEW PO SCH (08:55)
[2016-11-30] MEDS: OSELTAMIVIR PHOSPHATE 75 MG CAPSULE PO SCH (08:55)
[2016-11-30] MEDS: HEPARIN SODIUM, PORCINE 5000 UNITS/1 ML VIAL SQ SCH (09:01)
[2016-11-30 16:00] VITALS: BP 147/71
== END 2016-11-30 16:40 | DRG 871 ==
LOC: ER 23:15 → ICU 11-24 00:49 → MED 11-28 05:57
PROC: 0BH17EZ Insertion of Endotracheal Airway into Trachea, Via Natural or Artificial Opening (ICD-10-PCS; principal; 2016-11-24)
PROC: 5A1945Z Respiratory Ventilation, 24-96 Consecutive Hours (ICD-10-PCS; 2016-11-24)
PROC: 02HV33Z Insertion of Infusion Device into Superior Vena Cava, Percutaneous Approach (ICD-10-PCS; 2016-11-24)
PROC: B548ZZA Ultrasonography of Superior Vena Cava, Guidance (ICD-10-PCS; 2016-11-24)
PROC: 0DJ08ZZ Inspection of Upper Intestinal Tract, Via Natural or Artificial Opening Endoscopic (ICD-10-PCS; 2016-11-25)
DX: A41.89 Other specified sepsis (principal); I50.33 Acute on chronic diastolic (congestive) heart failure; J96.01 Acute respiratory failure with hypoxia; N17.0 Acute kidney failure with tubular necrosis; R65.21 Severe sepsis with septic shock; D68.59 Other primary thrombophilia; E87.2 Acidosis; F11.20 Opioid dependence, uncomplicated; K22.10 Ulcer of esophagus without bleeding; D50.9 Iron deficiency anemia, unspecified; K29.00 Acute gastritis without bleeding; G35 Multiple sclerosis; K21.9 Gastro-esophageal reflux disease without esophagitis; M79.7 Fibromyalgia; E87.6 Hypokalemia; Z74.01 Bed confinement status; N18.9 Chronic kidney disease, unspecified; Z68.28 Body mass index [BMI] 28.0-28.9, adult; E66.9 Obesity, unspecified; E03.9 Hypothyroidism, unspecified; R73.9 Hyperglycemia, unspecified; J10.1 Influenza due to other identified influenza virus with other respiratory manifestations; Z87.440 Personal history of urinary (tract) infections; E86.0 Dehydration
CPT/HCPCS: 31720; 36415; 36569; 36600; 71010-TC; 80048-TC; 80053-TC; 80061-TC; 80076-TC; 80202-TC; 81000-TC; 82306; 82570-TC; 82728-TC; 82803-TC; 82962-TC; 83540-TC; 83605-TC; 83735-TC; 83880; 84100-TC; 84300-TC; 84439-TC; 84443-TC; 84484-TC; 85025-TC; 85378-TC; 85610-TC; 86850-TC; 87040-TC; 87081-TC; 87086-TC; 87400; 92526; 92611-TC; 93970-TC; 94002-TC; 94003-TC; 94760-TC; 94799-TC; 97001-TC; 97110-TC; 99082-TC; A4216; A4606; C1751; C9113; J1170; J1644; J1650; J1815; J1940; J2185; J2270; J2765; J2916; J3010; J3370; J3475; J3480; J3490; J7030; J7040; J7060; Z7610

== ENCOUNTER 2017-03-10 18:47 | Emergency (ER) | payer MEDICARE ==
[~2017-03-10] VITALS: Ht 167.6 cm; Wt 66.2 kg
[~2017-03-10 18:47] MED LIST changes: -CEFT1VIA15 IV; -VANC1VIA IV
--- NOTE | 2017-03-10 19:08 | NUR ---
AAOX3, BIBPA FROM [facility] FOR DIARRHEA AND DIFFUSE ABD PAIN X 3-4 DAYS. DENIES NAUSEA OR VOMITING. SKIN IS WARM AND DRY. RESP IS EVEN AND UNLABORED WITH NAD NOTED. AWAITING MD FOR EVAL.
--- NOTE | 2017-03-10 19:18 | NUR ---
REPORT GIVEN TO BENTLEY FERNANDES FOR [facility].
--- NOTE | 2017-03-10 19:20 | NUR ---
RECEIVED REPORT FROM BENTLEY ISAACS FOR [facility].
--- NOTE | 2017-03-10 19:56 | NUR ---
XRAY AT BEDSIDE
[2017-03-10] MEDS ORDERED: ONDANSETRON HCL/PF 4 MG/2 ML VIAL ONE (19:57)
[2017-03-10] MEDS ORDERED: IV SET PRIMARY PUMP SET 1 EA INFUS.SET MC ONE ×2 (19:58→21:07)
[2017-03-10] MEDS ORDERED: IV NS 0.9% 1,000 ML ONE ×2 (19:58→21:07)
[2017-03-10] MEDS ORDERED: ONDANSETRON HCL/PF 4 MG/2 ML VIAL IVP ONE (20:00)
[2017-03-10] MEDS ORDERED: IV NS 0.9% 1,000 ML BAG IV ONE ×2 (20:00→21:00)
[2017-03-10 20:17] LABS: BASOPHILS # (AUTO) 0.3 /CMM (0.0-0.2); BASOPHILS % (AUTO) 2.8 % (0.0-2.0); EOSINOPHILS # (AUTO) 0.2 /CMM (0.0-0.7); EOSINOPHILS % (AUTO) 1.7 % (0.0-6.0); HEMATOCRIT 36 % (33-45); HEMOGLOBIN 12.2 g/dL (11.5-14.8); LYMPHOCYTES # (AUTO) 2.7 /CMM (0.8-4.8); LYMPHOCYTES % (AUTO) 22.5 % (20.0-44.0); MEAN CORPUSCULAR HEMOGLOBIN 30 PG (26.0-33.0); MEAN CORPUSCULAR HGB CONC 34 g/dl (31.0-36.0); MEAN CORPUSCULAR VOLUME 88 fL (82-100); MONOCYTES # (AUTO) 1.1 /CMM (0.1-1.30); MONOCYTES % (AUTO) 9.5 % (2.0-12.0); NEUTROPHILS # (AUTO) 7.5 /CMM (1.8-8.9); NEUTROPHILS % (AUTO) 63.5 % (43.0-81.0); PLATELET COUNT (AUTO) 347 /CMM (150-450); RDW COEFFICIENT OF VARIATION 14.5 (11.5-15.0); RED BLOOD CELL COUNT(AUTO) 4.08 MIL/uL (4.0-5.2); WHITE BLOOD COUNT (AUTO) 11.8 K/uL (4.3-11.0)
[2017-03-10] MEDS ORDERED: MORPHINE SULFATE INJ 4 MG/ML DISP.SYRIN ONE (20:27)
[2017-03-10] MEDS ORDERED: MORPHINE SULFATE INJ 2 MG/ML DISP.SYRIN IV ONE (20:30)
[2017-03-10 20:31] LABS: CALCIUM, SERUM 8.6 mg/dL (8.5-10.1); CREATININE 1.4 mg/dL (0.6-1.3); POTASSIUM 3.6 mmol/L (3.5-5.1)
[2017-03-10 20:43] LABS: ALBUMIN 2.9 g/dL (3.4-5.0); BILIRUBIN,TOTAL 0.2 mg/dL (0.2-1.0); TOTAL PROTEIN, SERUM 7.3 g/dL (6.4-8.2)
[2017-03-10] MEDS ORDERED: HYDROMORPHONE 1 MG/1 ML DISP.SYRIN ONE (21:07)
[2017-03-10] MEDS ORDERED: HYDROMORPHONE 1 MG/1 ML DISP.SYRIN IV ONE (21:30)
--- NOTE | 2017-03-10 21:33 | NUR ---
DR. MUNOZ AT BEDSIDE SPEAKING TO PT REGARDING RESULTS
--- NOTE | 2017-03-10 21:40 | NUR ---
CALLED [facility] FOR TRANSPORT BACK TO [facility], ETA 45 MIN- 1 HOUR
--- NOTE | 2017-03-10 23:20 | NUR ---
IV removed. Catheter intact and site benign. Pressure and 4x4 applied to site. No bleeding noted. Patient discharged to home in stable condition. Written and verbal after care instructions given. Patient verbalizes understanding of instruction. report given to emt fom med response. pt aware of transfer and with all belongings. pt transfered back to facility via gurney.
[2017-03-10 23:35] VITALS: BP 133/68
== END 2017-03-10 23:36 | disposition home or self-care (01) ==
LOC: ER 18:53
DX: R19.7 Diarrhea, unspecified (principal); E86.0 Dehydration; E03.9 Hypothyroidism, unspecified; F32.9 Major depressive disorder, single episode, unspecified; G35 Multiple sclerosis; G89.29 Other chronic pain; K21.9 Gastro-esophageal reflux disease without esophagitis; M79.7 Fibromyalgia; N30.10 Interstitial cystitis (chronic) without hematuria; Z79.82 Long term (current) use of aspirin; Z90.89 Acquired absence of other organs; Z90.49 Acquired absence of other specified parts of digestive tract
CPT/HCPCS: 36415; 74020-TC; 80048-TC; 80076-TC; 85025-TC; A4606; J1170; J2270; J2405; J7030; Z7610